=== PATIENT | male | born 1950 | race Asian ===

== ENCOUNTER 2025-01-13 10:29 | Emergency (ER) | payer MEDICARE, OTHER ==
[~2025-01-13] VITALS: Ht 167.6 cm; Wt 77.3 kg
[~2025-01-13 10:29] MED LIST: ACET-66 PO; MAG30ORA11 PO; OMEP-148 PO; ONDA-104 PO; POLY238P PO
[2025-01-13] MEDS ORDERED: AMLO5TAB66 PO (10:36)
[2025-01-13] MEDS: BACITRACIN 0.9 GM PACKET OINTMENT TP ONE (12:30)
[2025-01-13] MEDS: LIDOCAINE 1% 10 ML VIAL ID ONE (12:30)
[2025-01-13] MEDS: PERTUSS(ACELL),DIPH,TET/PF 0.5 ML SYRINGE [ADULT] IM. ONE (12:31)
[2025-01-13] MEDS: SODIUM CHLORIDE 0.9% 250 ML IRRIG SOLUTION BOTTLE IRRIG ONE (12:31)
[2025-01-13 15:42] VITALS: BP 166/88; PULSE 100; RESP 18; TEMP 98; O2SAT 99
[2025-01-13] MEDS ORDERED: CEPH-558 PO (15:42)
== END 2025-01-13 17:31 | disposition home or self-care (01) ==
LOC: EMS 10:29
DX: S61.217A Laceration without foreign body of left little finger without damage to nail, initial encounter (principal); S61.215A Laceration without foreign body of left ring finger without damage to nail, initial encounter; W27.8XXA Contact with other nonpowered hand tool, initial encounter; Y93.89 Activity, other specified; Y92.89 Other specified places as the place of occurrence of the external cause; Y99.8 Other external cause status
CPT/HCPCS: 99283; 73130; 90715; 90471; 12002; J3490